=== PATIENT | male | born 1965 | race Caucasian/White ===

== ENCOUNTER → 2016-04-25 | Outpatient (CLI) | payer BC, OTHER ==
[2016-04-25 14:18] LABS: BASO % 0.1 %; BASO ABS # 0.01 K/uL (0-0.2); COMPLETE YES; EOS % 2.7 %; HEMATOCRIT 45.5 % (42-52); IG% 0.4 %; LYMPH % 25.1 %; LYMPH ABS # 1.94 K/uL (1.2-3.4); MEAN CELL VOLUME 87.5 fL (80-100); MEAN CORPUSCULAR HEMOGLOBIN 27.9 pg (25-34); MEAN CORPUSCULAR HGB CONC 31.9 g/dl (32-36); NEUT % 64.7 %; PLATELET COUNT 261 K/uL (130-400); WHITE BLOOD COUNT 7.72 K/uL (4.8-10.8)
[2016-04-25 14:25] LABS: ALT/SGPT 38 U/L (12-78); BLOOD UREA NITROGEN 20 mg/dl (7-18); BUN/CREATININE RATIO 29.7 (10-20); CALCIUM 9.1 mg/dl (8.5-10.1); CARBON DIOXIDE 30 mmol/L (21-32); CHLORIDE 107 mmol/L (98-107); CREATININE 0.67 mg/dl (0.60-1.40); GLUCOSE 111 mg/dl (70-99); POTASSIUM 4.3 mmol/L (3.5-5.1); SODIUM 145 mmol/L (136-145)
[2016-04-25 14:30] LABS: ALKALINE PHOSPHATASE 98 U/L (45-117); AST/SGOT 17 U/L (15-37); PROSTATE SPECIFIC ANTIGEN 0.962 ng/ml (0.000-4.000)
== END | disposition home or self-care (01) ==
LOC: C.LABSPEC 13:32
PROVIDERS: ATTEND Family Medicine
DX: R53.83 Other fatigue (principal); R06.02 Shortness of breath; R60.0 Localized edema; Z12.5 Encounter for screening for malignant neoplasm of prostate; Z11.59 Encounter for screening for other viral diseases